=== PATIENT | male | born 1985 | race Two or more races ===

== ENCOUNTER 2021-12-20 16:51 | Emergency (ER) | payer SELFPAY ==
[~2021-12-20] VITALS: Ht 172.7 cm; Wt 99.8 kg
[2021-12-20] MEDS ORDERED: HYDROcodone-ACET 10/325MG TAB PO ONE (21:15)
[2021-12-20] MEDS ORDERED: IBUP800T27 PO (21:44)
[2021-12-20 22:40] VITALS: BP 127/75
== END 2021-12-20 22:43 | disposition home or self-care (01) ==
LOC: ER 16:51
DX: S89.91XA Unspecified injury of right lower leg, initial encounter (principal); M25.561 Pain in right knee; W11.XXXA Fall on and from ladder, initial encounter; Y93.89 Activity, other specified; Y92.9 Unspecified place or not applicable; Y99.8 Other external cause status
CPT/HCPCS: 29505; 73562; 73700